=== PATIENT | male | born 1950 ===

== ENCOUNTER 2023-06-12 05:25 | Day surgery (SDC) | payer OTHER ==
[2023-06-06 08:11] LABS: HEMATOCRIT 43.3 % (39.0-48.0); MEAN CORPUSCULAR HEMOGLOBIN 31.1 pg (27.00-32.0); MEAN CORPUSCULAR HGB CONC 34.5 g/dl (32.0-36.0); PLATELET COUNT 204 K/uL (150-450); RED BLOOD COUNT 4.81 M/uL (4.00-6.00); RED CELL DISTRIBUTION WIDTH 14.1 % (11.5-14.5)
[2023-06-06 08:12] LABS: URINE APPEARANCE Clear; URINE BILIRRUBIN Negative (NEGATIVE); URINE BLOOD Negative; URINE COLOR Yellow; URINE GLUCOSE Negative (NEGATIVE); URINE LEUKOCYTE Negative; URINE NITRATE Negative; URINE PROTEIN Negative (NEGATIVE); URINE UROBILINOGEN 0.2 E.U./dl
[2023-06-06 08:21] LABS: URINE EPITHELIAL CELLS 0.3 uL (0.0-38.8)
[2023-06-06 08:39] LABS: INR 1.04; PARTIAL THROMBOPLASTIN TIME 28.3 SECONDS (22.0-34.0); PROTHROMBIN TIME 10.9 SECONDS (9.0-11.5)
[2023-06-06 08:49] LABS: BILIRUBIN TOTAL 0.71 mg/dL (0.3-1.2); CALCIUM 9.2 mg/dL (8.5-10.1); GFR 73.66; POTASSIUM 4.03 mEq/L (3.5-5.1)
[~2023-06-12 05:25] MED LIST: ADCIRCA20 MG PO; ATORVASTATIN CA10 MG PO; B12 ACTIVE1000 MCG PO; FOLIC ACID1 MG PO; IRBESARTAN-HCT1 EACH PO; LUMIGAN2.5 M1 OP; OMEGA-31000 MG PO; PROTONIX40 MG PO; SYNTHROID125 MCG PO
== END 2023-06-12 15:25 | disposition home or self-care (01) ==
LOC: CIR.AMB 05:25
PROVIDERS: ATTEND Surgery
DX: K40.90 Unilateral inguinal hernia, without obstruction or gangrene, not specified as recurrent (principal); Z88.6 Allergy status to analgesic agent; Z20.822 Contact with and (suspected) exposure to COVID-19; E78.5 Hyperlipidemia, unspecified; I10 Essential (primary) hypertension; E03.9 Hypothyroidism, unspecified
CPT/HCPCS: 49650; C1781